=== PATIENT | male | born 1970 | race Caucasian/White ===

== ENCOUNTER 2017-03-08 21:17 | Inpatient (IN) | payer OTHER ==
[~2017-03-08] VITALS: Ht 188 cm; Wt 115.7 kg
[~2017-03-08 21:17] MED LIST: CIPR500T2 PO; OXYC-360 PO
[2017-03-08 21:21] VITALS: BP 134/92; PULSE 104; RESP 16; TEMP 98.2; O2SAT 97
[2017-03-08] MEDS ORDERED: SODIUM CHLORIDE 0.9% FLUSH 10 ML FLUSH IV FLUSH PRN (22:30)
[2017-03-08 22:41] LABS: AUTOMATED NEUTROPHIL # 9.6 TH/MM3 (1.8-7.7); BASOPHIL # 0.1 TH/MM3 (0-0.2); BASOPHIL % 0.5 % (0.0-2.0); EOSINOPHIL # 0.2 TH/MM3 (0-0.4); EOSINOPHIL % 1.8 % (0.0-4.0); HEMATOCRIT 44.4 % (39.0-51.0); HEMO FLAGS DIFF FINAL; LYMPH % 13.5 % (9.0-44.0); LYMPHOCYTE # 1.7 TH/MM3 (1.0-4.8); MEAN CELL VOLUME 94.9 FL (80.0-100.0); MEAN CORPUSCULAR HEMOGLOBIN 31.9 PG (27.0-34.0); MEAN CORPUSCULAR HGB CONC 33.6 % (32.0-36.0); MONO % 8.6 % (0.0-8.0); NEUT % 75.6 % (16.0-70.0); PLATELET COUNT 152 TH/MM3 (150-450); RED BLOOD COUNT 4.68 MIL/MM3 (4.50-5.90); RED CELL DISTRIBUTION WIDTH 12.9 % (11.6-17.2); WHITE BLOOD COUNT 12.7 TH/MM3 (4.0-11.0)
[2017-03-08] MEDS ORDERED: LIDOCAINE VISCOUS 2% SOLN 15 ML UDC PO ONE (23:00)
[2017-03-08] MEDS ORDERED: ALUMINUM/MAGNESIUM/SIMETH 30 ML CUP PO ONE (23:00)
--- NOTE | 2017-03-08 23:06 | PD ---
HPI Chief Complaint: Abdominal Pain Time Seen by Provider: 22:13 Travel History International Travel<30 days: No Contact w/Intl Traveler<30days: No Traveled to known affect area: No History of Present Illness HPI Patient 46-year-old male otherwise healthy presents emergency Department with right other vague epigastric abdominal pain symptoms. Patient states it feels worse when he sits forward because gravity pulling down into the rest of the stomach. He endorses mild nausea without vomiting. Denies any diarrhea. Denies any fevers chest pain shortness of breath. Patient states been gradually worsening over the past 4 days or so. He denies a history of diabetes , he states that his father did have a history of diabetes. [facility] Past Medical History Medical History: Denies Significant Hx Diminished Hearing: No Tetanus Vaccination: > 5 Years Influenza Vaccination: No Past Surgical History Surgical History: No Previous Surgery Social History Alcohol Use: Yes (ON OCCASION) Tobacco Use: No Substance Use: No Allergies-Medications (Allergen,Severity, Reaction): Coded Allergies: No Known Allergies (Verified , 03/08/17) Reported Meds & Prescriptions Reported Meds & Active Scripts Active No Active Prescriptions or Reported Medications Review of Systems Except as stated in HPI: all other systems reviewed are Neg Physical Exam Narrative GENERAL: Well-developed well-nourished no apparent distress SKIN: Focused skin assessment warm/dry. HEAD: Atraumatic. Normocephalic. EYES: Pupils equal and round. No scleral icterus. No injection or drainage. ENT: No nasal bleeding or discharge. Mucous membranes pink and moist. NECK: Trachea midline. No JVD. CARDIOVASCULAR: Regular rate and rhythm. No murmur appreciated. RESPIRATORY: No accessory muscle use. Clear to auscultation. Breath sounds equal bilaterally. GASTROINTESTINAL: Abdomen soft, non-tender, nondistended. Hepatic and splenic margins not palpable. No rebound no percussive tenderness. MUSCULOSKELETAL: No obvious deformities. No clubbing. No cyanosis. No edema. NEUROLOGICAL: Awake and alert. No obvious cranial nerve deficits. Motor grossly within normal limits. Normal speech. PSYCHIATRIC: Appropriate mood and affect; insight and judgment normal. Data Data Last Documented VS Vital Signs Date Time Temp Pulse Resp B/P Pulse Ox O2 Delivery O2 Flow Rate FiO2 03/08/17 23:46 100 14 137/84 95 Room Air 03/08/17 21:21 98.2 Orders Complete Blood Count With Diff (03/08/17 22:21) Comprehensive Metabolic Panel (03/08/17 22:21) Lipase (03/08/17 22:21) Iv Access Insert/Monitor (03/08/17 22:21) Ecg Monitoring (03/08/17 22:21) Oximetry (03/08/17 22:21) Sodium Chloride 0.9% Flush (Ns Flush) (03/08/17 22:30) Electrocardiogram (03/08/17 22:21) Troponin I (03/08/17 22:21) Al-Mag Hy-Si 40-40-4 Mg/Ml Liq (Mag-Al P (03/08/17 23:00) Lidocaine 2% Viscous (Xylocaine 2% Visco (03/08/17 23:00) Sodium Chlor 0.9% 1000 Ml Inj (Ns 1000 M (03/08/17 23:30) Insulin Human Regular Inj (Novolin R Inj (03/08/17 23:30) Beta Hydroxybutyrate (Acetone) (03/08/17 23:33) Resp Blood Gas Venous (03/08/17 ) Vba Developer / Telemetry JOSE.Q8H (03/08/17 23:33) ^ Insert Iv (03/08/17 23:33) Diet Npo (03/09/17 Breakfast) Sodium Chlor 0.9% 1000 Ml Inj (Ns 1000 M (03/08/17 23:33) Dext 5%-Nacl 0.9% 1000 Ml Inj (D5w-Ns 10 (03/08/17 23:33) Insulin Regular (Iv Infusion) (Novolin R (03/08/17 23:45) Potassium Chlor 40 Meq Premix (Kcl 40 Me (03/08/17 23:45) Potassium Chlor 40 Meq Premix (Kcl 40 Me (03/08/17 23:45) Potassium Chlor 20 Meq Premix (Kcl 20 Me (03/08/17 23:45) Potassium Chlor 20 Meq Premix (Kcl 20 Me (03/08/17 23:45) Potassium Chlor 20 Meq Premix (Kcl 20 Me (03/08/17 23:45) Potassium Chlor 20 Meq Premix (Kcl 20 Me (03/08/17 23:45) Potassium Chlor 20 Meq Premix (Kcl 20 Me (03/08/17 23:45) Potassium Chlor 20 Meq Premix (Kcl 20 Me (03/08/17 23:45) Sodium Bicarbonate 8.4% Inj (Sodium Bica (03/08/17 23:45) Sodium Bicarbonate 8.4% Inj (Sodium Bica (03/08/17 23:45) Sodium Phosphate Inj (Sodium Phosphate I (03/08/17 23:45) Hemoglobin (Hgb) A1c (03/08/17 23:33) Urinalysis - C+S If Indicated (03/08/17 23:33) Basic Metabolic Panel (Bmp) (03/09/17 04:33) Basic Metabolic Panel (Bmp) (03/09/17 10:33) Basic Metabolic Panel (Bmp) (03/09/17 16:33) Basic Metabolic Panel (Bmp) (03/09/17 22:33) Magnesium (Mg) (03/09/17 04:33) Magnesium (Mg) (03/09/17 10:33) Magnesium (Mg) (03/09/17 16:33) Magnesium (Mg) (03/09/17 22:33) Phosphorus (Po4) (03/09/17 04:33) Phosphorus (Po4) (03/09/17 10:33) Phosphorus (Po4) (03/09/17 16:33) Phosphorus (Po4) (03/09/17 22:33) Beta Hydroxybutyrate (Acetone) (03/09/17 10:33) Beta Hydroxybutyrate (Acetone) (03/09/17 22:33) Sodium Chlor 0.9% 1000 Ml Inj (Ns 1000 M (03/09/17 00:00) Admit To Inpatient (03/08/17 ) Vital Signs (Adult) Q4H (03/08/17 23:47) Activity Oob Ad Catherine (03/08/17 23:47) Vba Developer / Telemetry .CONTINUOUS (03/08/17 23:47) Sodium Chloride 0.9% Flush (Ns Flush) (03/09/17 00:00) Sodium Chloride 0.9% Flush (Ns Flush) (03/09/17 09:00) Case Management Consult (03/08/17 23:47) Naloxone Inj (Narcan Inj) (03/09/17 00:00) Inpatient Certification (03/08/17 ) Admit Order (Ed Use Only) (03/08/17 ) Labs Laboratory Tests Test 03/08/17 03/08/17 22:30 23:36 White Blood Count 12.7 TH/MM3 Red Blood Count 4.68 MIL/MM3 Hemoglobin 14.9 GM/DL Hematocrit 44.4 % Mean Corpuscular Volume 94.9 FL Mean Corpuscular Hemoglobin 31.9 PG Mean Corpuscular Hemoglobin 33.6 % Concent Red Cell Distribution Width 12.9 % Platelet Count 152 TH/MM3 Mean Platelet Volume 10.2 FL Neutrophils (%) (Auto) 75.6 % Lymphocytes (%) (Auto) 13.5 % Monocytes (%) (Auto) 8.6 % Eosinophils (%) (Auto) 1.8 % Basophils (%) (Auto) 0.5 % Neutrophils # (Auto) 9.6 TH/MM3 Lymphocytes # (Auto) 1.7 TH/MM3 Monocytes # (Auto) 1.1 TH/MM3 Eosinophils # (Auto) 0.2 TH/MM3 Basophils # (Auto) 0.1 TH/MM3 CBC Comment DIFF FINAL Differential Comment Sodium Level 124 MEQ/L Potassium Level 4.7 MEQ/L Chloride Level 92 MEQ/L Carbon Dioxide Level 15.6 MEQ/L Anion Gap 16 MEQ/L Blood Urea Nitrogen 8 MG/DL Creatinine 1.27 MG/DL Estimat Glomerular Filtration 61 ML/MIN Rate Random Glucose 455 MG/DL Calcium Level 8.8 MG/DL Total Bilirubin 1.5 MG/DL Aspartate Amino Transf 28 U/L (AST/SGOT) Alanine Aminotransferase 34 U/L (ALT/SGPT) Alkaline Phosphatase 96 U/L Troponin I LESS THAN 0.02 NG/ML Total Protein 8.3 GM/DL Albumin 3.3 GM/DL Lipase 89986 U/L B-Hydroxybutyrate 5.44 MMOL/L Blood Gas Puncture Site PIV Blood Gas Patient Temperature 98.6 Venous Blood pH 7.35 Venous Blood Partial Pressure 24 mmHg CO2 Venous Blood Partial Pressure 47 mmHg O2 Venous Blood HCO3 13 mmol/L Venous Blood Oxygen Saturation 80 % Venous Blood Oxygen Content 17.3 Vol % Venous Blood Base Excess -11.4 mmol/L Oxygen Delivery Device RA Blood Gas Inspired Oxygen 21 % MDM Medical Decision Making Medical Screen Exam Complete: Yes Emergency Medical Condition: Yes Interpretation(s) EKG shows no sinus rhythm normal axis and normal R-wave progression. No concerning ST T changes. Minimal motion artifact in V2. Intervals within normal limits. This normal EKG. Differential Diagnosis Abdominal pain, electrolyte abnormality, metabolic disturbance, DKA, acute abdomen highly unlikely Narrative Course 46-year-old male quite well-appearing with a benign physical exam presents emergency Department with epigastric abdominal pain. Basic labs were sent and remarkably the patient has new onset diabetes with DKA and a blood glucose in excess of 450. DKA is fairly mild. PH is 7.3. His anion gap is 16 with a bicarbonate of 15. Discuss results with the patient and my recommendations for fluid resuscitation and admission and he is agreeable. The DKA protocol has been initiated. His pain is well under control and he declined anything for pain at this time. An EKG was obtained and negative, troponin negative. Does have a sodium of 124 which collects to 133 when corrected for glucose. Lipase is elevated to 10,000 was likely runs with his DKA. Beta hydroxybutyrate is positive. She was discussed with Dr. Durbin for admission to the ICU and she is agreeable. Critical Care Narrative Aggregate critical care time was 31 minutes. Time to perform other separately billable procedures was not included in the critical care time. My time did not include minutes spent treating any other patients simultaneously or on activities that did not directly contribute to the patient's treatment. The services I provided to this patient were to treat and/or prevent clinically significant deterioration that could result in: , Disability, organ failure I provided critical care services requiring my management, as noted below: Chart data review, documentation time, medication orders and management, vital sign assessments/reviewing monitor data, ordering and reviewing lab tests, ordering and interpreting/reviewing x-rays and diagnostic studies, care of the patient and discussion of the patient with the admitting physicians. Diagnosis Primary Impression: DKA (diabetic ketoacidoses) Qualified Code: E13.10 - Diabetic ketoacidosis without coma associated with other specified diabetes mellitus Additional Impression: Diabetes mellitus, new onset Admitting Information Admitting Physician Requests: Admit Scripts No Active Prescriptions or Reported Meds Condition: Stable Edmond Lindsay MD Mar 08, 2017 23:06
[2017-03-08 23:17] LABS: ALKALINE PHOSPHATASE 96 U/L (45-117); ALT (GPT) 34 U/L (12-78); ANION GAP 16 MEQ/L (5-15); AST (GOT) 28 U/L (15-37); BICARBONATE 15.6 MEQ/L (21.0-32.0); BLOOD UREA NITROGEN 8 MG/DL (7-18); CHLORIDE 92 MEQ/L (98-107); GLOMERULAR FILTRATION RATE 61 ML/MIN (>89); TOTAL BILIRUBIN ADULT 1.5 MG/DL (0.2-1.0)
[2017-03-08 23:18] LABS: POTASSIUM 4.7 MEQ/L (3.5-5.1)
[2017-03-08 23:29] LABS: SODIUM (NA) 124 MEQ/L (136-145)
[2017-03-08] MEDS ORDERED: INSULIN HUMAN REGULAR 1,000 UNITS/10 ML VIAL IV PUSH ONE (23:30)
[2017-03-08] MEDS ORDERED: SODIUM CHLOR 0.9% 1000 ML INJ 1,000 ML IV ONE (23:30)
[2017-03-08] MEDS ORDERED: DEXT 5%-NACL 0.9% 1000 ML INJ 1,000 ML IV SCH (23:33)
[2017-03-08] MEDS ORDERED: SODIUM CHLOR 0.9% 1000 ML INJ 1,000 ML IV SCH (23:33)
[2017-03-08] MEDS ORDERED: SODIUM PHOSPHATE INJ 15 MMOL in SODIUM CHLORIDE 0.9% INJ 100 ML IV PRN (23:45)
[2017-03-08] MEDS ORDERED: INSULIN REGULAR (IV INFUSION) 100 UNITS in SODIUM CHLORIDE 0.9% INJ 99 ML IV SCH (23:45)
[2017-03-08] MEDS ORDERED: POTASSIUM CHLOR 40 MEQ PREMIX 100 ML IV PRN ×2 (23:45)
[2017-03-08] MEDS ORDERED: SODIUM BICARBONATE 8.4% SOLN 50 MEQ/50 ML VIAL IV PRN ×2 (23:45)
[2017-03-08] MEDS ORDERED: POTASSIUM CHLOR 20 MEQ PREMIX 100 ML IV PRN ×5 (23:45)
[2017-03-08 23:46] VITALS: BP 137/84; PULSE 100; RESP 14; O2SAT 95
[2017-03-08 23:58] LABS: BLOOD GAS VENOUS BASE EXCESS -11.4 mmol/L (-2-2); BLOOD GAS VENOUS HCO3 13 mmol/L (22-26); BLOOD GAS VENOUS O2 CONTENT 17.3 Vol % (9.0-17.0); BLOOD GAS VENOUS O2 HGB SAT 80 % (70-76); BLOOD GAS VENOUS PCO2 24 mmHg (44-48); BLOOD GAS VENOUS PO2 47 mmHg (35-40); BLOOD GAS VENOUS pH 7.35 (7.360-7.400); TEMP CORR TO 98.6
[2017-03-08 23:59] LABS: CRITICAL VALUE YES; FIO2 21 %; OXYGEN DEVICE RA
[2017-03-09] VITALS (16 sets, daily range): BP systolic 115–140; BP diastolic 69–85; PULSE 78–98; RESP 16–20; TEMP 98–99.1; O2SAT 94–96
[2017-03-09] LABS: DRAW SITE PIV; STAT YES
[2017-03-09] MEDS ORDERED: NALOXONE HCL 0.4 MG/ML AMP IV PRN
[2017-03-09] MEDS ORDERED: SODIUM CHLORIDE 0.9% FLUSH 10 ML FLUSH IV FLUSH PRN
[2017-03-09] MEDS ORDERED: SODIUM CHLOR 0.9% 1000 ML INJ 1,000 ML IV ONE
[2017-03-09] MEDS: POTASSIUM CHLOR 20 MEQ PREMIX 100 ML IV PRN ×2 (00:43→06:22)
[2017-03-09 00:57] LABS: BLOOD, URINE TRACE (NEG); GLUCOSE,URINE 1000 mg/dL (NEG); KETONE, URINE 150 mg/dL (NEG); NITRITE,URINE NEG (NEG); URINE COLOR LIGHT-YELLOW (YELLW/STRAW)
[2017-03-09 01:13] LABS: COMMENT (UR) CULT NOT INDICATED; CULTURE IF INDICATED CULT NOT INDICATED
--- NOTE | 2017-03-09 02:19 | HHI.HP ---
[facility] Service [facility] Primary Care Physician No Primary Care Physician Admission Diagnosis DKA, new onset diabetes Diagnoses: Chief Complaint: abdominal pain Travel History International Travel<30 Days: No Contact w/Intl Traveler <30 Da: No Traveled to Known Affected Are: No History of Present Illness History from patient and ER physician communication. patient reported that he came to the hospital because he was having stomach ache starting Tuesday. He pointed to the mid epigastrium. He denies any nausea. Denies vomiting. Denies diarrhea. Denies any fever. He reports that he did have some loss of appetite. He was however pushing lots of fluids at home with Gatorade Denies any urinary burning or pain on urination or frequent urination. Denies diarrhea. denies seeing blood in his stool or urine. Denies any chest pain/shortness of breath/syncopal episodes. Patient reports that he commutes to [place] for his job on daily basis with that one hour car ride back and forth. However he denies any calf asymmetry or pains in his calf muscles. Upon further questioning, patient reports he does drink a lot of water about 3- 4 L a day. Also reports of urinating quite a bit. In the emergency room, patient's further workup revealed elevated blood sugars with an anion gap metabolic acidosis. He was also noted to have elevated lipase levels. Denies taking any medications at home at all apart from mild vitamins. Denies drinking any alcohol at all. He states he only probably drinks about once a year. Reports a family history of diabetes in his father. Review of Systems Except as stated in HPI: all other systems reviewed are Neg Past Family Social History Past Medical History none Past Surgical History none Reported Medications mvi none Allergies: Coded Allergies: No Known Allergies (Verified , 03/08/17) Family History dad- dm- diagnosed in his 70s Social History no smoking/ socially only once a year/ no drugs Physical Exam Vital Signs Vital Signs Date Time Temp Pulse Resp B/P Pulse Ox O2 Delivery O2 Flow Rate FiO2 03/09/17 01:31 99.1 93 20 134/85 95 03/08/17 23:46 100 14 137/84 95 Room Air 03/08/17 21:21 98.2 104 16 134/92 97 Physical Exam GENERAL: This is a well-nourished, well-developed patient, in no apparent distress. SKIN: No rashes, ecchymoses or lesions. Cool and dry. HEAD: Atraumatic. Normocephalic. No temporal or scalp tenderness. EYES: No scleral icterus. No injection or drainage. ENT: Nose without bleeding, purulent drainage or septal hematoma. Airway patent. NECK: Trachea midline. No JVD CARDIOVASCULAR: Regular rate and rhythm without murmurs, gallops, or rubs. RESPIRATORY: Clear to auscultation. Breath sounds equal bilaterally. No wheezes , rales, or rhonchi. GASTROINTESTINAL: Abdomen soft, non-tender, nondistended. No guarding. MUSCULOSKELETAL: Extremities without clubbing, cyanosis, or edema. No calf tenderness. NEUROLOGICAL: Awake and alert. Motor and sensory grossly within normal limits. Normal speech. Laboratory Laboratory Tests Test 03/08/17 03/08/17 03/09/17 22:30 23:36 00:40 White Blood Count 12.7 Red Blood Count 4.68 Hemoglobin 14.9 Hematocrit 44.4 Mean Corpuscular Volume 94.9 Mean Corpuscular Hemoglobin 31.9 Mean Corpuscular Hemoglobin 33.6 Concent Red Cell Distribution Width 12.9 Platelet Count 152 Mean Platelet Volume 10.2 Neutrophils (%) (Auto) 75.6 Lymphocytes (%) (Auto) 13.5 Monocytes (%) (Auto) 8.6 Eosinophils (%) (Auto) 1.8 Basophils (%) (Auto) 0.5 Neutrophils # (Auto) 9.6 Lymphocytes # (Auto) 1.7 Monocytes # (Auto) 1.1 Eosinophils # (Auto) 0.2 Basophils # (Auto) 0.1 CBC Comment DIFF FINAL Differential Comment Sodium Level 124 Potassium Level 4.7 Chloride Level 92 Carbon Dioxide Level 15.6 Anion Gap 16 Blood Urea Nitrogen 8 Creatinine 1.27 Estimat Glomerular Filtration 61 Rate Random Glucose 455 Calcium Level 8.8 Total Bilirubin 1.5 Aspartate Amino Transf 28 (AST/SGOT) Alanine Aminotransferase 34 (ALT/SGPT) Alkaline Phosphatase 96 Troponin I LESS THAN 0.02 Total Protein 8.3 Albumin 3.3 Lipase 71350 B-Hydroxybutyrate 5.44 Blood Gas Puncture Site PIV Blood Gas Patient Temperature 98.6 Venous Blood pH 7.35 Venous Blood Partial Pressure 24 CO2 Venous Blood Partial Pressure 47 O2 Venous Blood HCO3 13 Venous Blood Oxygen Saturation 80 Venous Blood Oxygen Content 17.3 Venous Blood Base Excess -11.4 Oxygen Delivery Device RA Blood Gas Inspired Oxygen 21 Urine Color LIGHT-YELLOW Urine Turbidity CLEAR Urine pH 5.0 Urine Specific [place] 1.032 Urine Protein TRACE Urine Glucose (UA) 1000 Urine Ketones 150 Urine Occult Blood TRACE Urine Nitrite NEG Urine Bilirubin NEG Urine Urobilinogen LESS THAN 2.0 Urine Leukocyte Esterase NEG Urine RBC LESS THAN 1 Urine WBC LESS THAN 1 Microscopic Urinalysis Comment CULT NOT INDICATED Result Diagram: 03/08/17222903/08/172229 Assessment and Plan Problem List: (1) DKA (diabetic ketoacidoses) ICD Code: E13.10 Status: Acute (2) Pancreatitis ICD Code: K85.90 Status: Acute Assessment and Plan Impression: DKA Anion gap Metabolic acidosis Pseudohyponatremia Acute pancreatitis Plan: Patient was given normal saline bolus 2 L IV fluids. He was started on insulin drip per DKA protocol. Every hour fingersticks. Electrolytes close monitoring with correction. Will overlap with long-acting insulin once anion gap is closed. Nothing by mouth for now. Once the anion gap is closed and patient is able to tolerate diet, would start on diet. Patient has no evidence of nausea/vomiting at present. 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 DVT prophylaxiswith Lovenox. Discussed Condition With Patient, ER physician, patient's nurse Physician Certification 2 Midnight Certification Type: Admission for Inpatient Services Order for Inpatient Services The services are ordered in accordance with Medicare regulations or non- Medicare payer requirements, as applicable. In the case of services not specified as inpatient-only, they are appropriately provided as inpatient services in accordance with the 2-midnight benchmark. Estimated LOS (days): 2 days is the estimated time the patient will need to remain in the hospital, assuming treatment plan goals are met and no additional complications. Post-Hospital Plan: Home Problem Qualifiers (1) DKA (diabetic ketoacidoses): Qualified Code: E13.10 - Diabetic ketoacidosis without coma associated with other specified diabetes mellitus Sissy León MD Mar 09, 2017 02:19
[2017-03-09] MEDS ORDERED: MISCELLANEOUS NURSING INFORMATION XX SCH (02:30)
[2017-03-09] MEDS ORDERED: CHLORHEXIDINE GLUCONATE 2 % 1 PACK (2 CLOTHS) TOP PRN (02:30)
[2017-03-09] MEDS ORDERED: MORPHINE SULFATE 4 MG/ML INJ IV PUSH PRN (02:30)
[2017-03-09] MEDS: CHLORHEXIDINE GLUCONATE 2 % 1 PACK (2 CLOTHS) TOP SCH (04:00)
[2017-03-09 05:19] LABS: AUTOMATED NEUTROPHIL # 7.9 TH/MM3 (1.8-7.7); BASOPHIL % 0.4 % (0.0-2.0); EOSINOPHIL # 0.2 TH/MM3 (0-0.4); EOSINOPHIL % 1.9 % (0.0-4.0); HEMATOCRIT 40.9 % (39.0-51.0); HEMO FLAGS DIFF FINAL; LYMPH % 18.5 % (9.0-44.0); LYMPHOCYTE # 2.1 TH/MM3 (1.0-4.8); MEAN CELL VOLUME 93.2 FL (80.0-100.0); MEAN CORPUSCULAR HEMOGLOBIN 31.7 PG (27.0-34.0); MONO % 8.7 % (0.0-8.0); NEUT % 70.5 % (16.0-70.0); PLATELET COUNT 140 TH/MM3 (150-450); RED BLOOD COUNT 4.39 MIL/MM3 (4.50-5.90); WHITE BLOOD COUNT 11.1 TH/MM3 (4.0-11.0)
[2017-03-09 05:21] LABS: BICARBONATE 17.7 MEQ/L (21.0-32.0); INDIRECT BILIRUBIN 1.1 MG/DL (0.0-0.8); MAGNESIUM 2.2 MG/DL (1.5-2.5); POTASSIUM 3.7 MEQ/L (3.5-5.1); TOTAL BILIRUBIN ADULT 1.2 MG/DL (0.2-1.0)
[2017-03-09] MEDS ORDERED: INSULIN DETEMIR 100 UNITS/ML VIAL SQ ONE (05:30)
[2017-03-09] MEDS: SODIUM CHLORIDE 0.9% FLUSH 10 ML FLUSH IV FLUSH SCH ×2 (09:00→20:18)
[2017-03-09] MEDS: INSULIN DETEMIR 100 UNITS/ML VIAL SQ SCH (09:19)
[2017-03-09] MEDS: ENOXAPARIN SODIUM 40 MG/0.4 ML SYRINGE SQ SCH (09:20)
[2017-03-09] MEDS ORDERED: DEXTROSE 50% IN WATER 50 ML VIAL(D50) IV PUSH PRN (10:45)
[2017-03-09] MEDS ORDERED: GLUCAGON 1 MG/ML VIAL OTHER PRN (10:45)
[2017-03-09] MEDS: INSULIN ASPART SUPPLEMENTAL SCALE SQ SCH ×3 (12:24→20:19)
[2017-03-09] MEDS: POTASSIUM PHOSPHATE/SODIUM PHOSPHATE 250 MG TAB PO SCH ×3 (12:24→23:40)
[2017-03-09 15:48] LABS: HEMOGLOBIN A1a 1.3 %; HEMOGLOBIN A1b 1.2 %; HEMOGLOBIN Ao 71.5 %; HEMOGLOBIN LA1C 4.2 %; HEMOGLOBIN P3 5.4 %
[2017-03-09 16:09] LABS: HEMOGLOBIN A1a 1.3 %; HEMOGLOBIN A1b 1.1 %; HEMOGLOBIN Ao 73.2 %; HEMOGLOBIN F 1.9 %; HEMOGLOBIN LA1C 3.1 %; HEMOGLOBIN P3 5.1 %
--- NOTE | 2017-03-09 16:52 | HHI.PR ---
Subjective Remarks Follow-up DKA. He is feeling better. Diabetic education provided. Discussed with RN Objective Vitals Vital Signs Date Time Temp Pulse Resp B/P Pulse Ox O2 Delivery O2 Flow Rate FiO2 03/09/17 14:00 80 03/09/17 12:00 80 03/09/17 11:00 98.6 86 18 123/78 95 03/09/17 10:00 80 03/09/17 08:00 78 03/09/17 07:00 98.2 93 16 117/70 96 03/09/17 06:00 88 03/09/17 04:00 98.0 89 18 128/72 96 03/09/17 04:00 89 03/09/17 02:00 98 03/09/17 02:00 98 03/09/17 01:31 99.1 93 20 134/85 95 03/08/17 23:46 100 14 137/84 95 Room Air 03/08/17 21:21 98.2 104 16 134/92 97 I/O 03/08/17 03/08/17 03/08/17 03/09/17 03/09/17 03/09/17 07:00 15:00 23:00 07:00 15:00 23:00 Intake Total 1015 ml 2226 ml Output Total 600 ml 1200 ml Balance 415 ml 1026 ml Intake Oral 720 ml IV Total 1015 ml 1506 ml Output Urine Total 600 ml 1200 ml # Voids 4 Result Diagram: 03/09/17 0413 03/09/17 0413 Objective Remarks GENERAL: This is a well-nourished, well-developed patient, in no apparent distress. SKIN: No rashes, ecchymoses or lesions. Cool and dry. HEAD: Atraumatic. Normocephalic. No temporal or scalp tenderness. EYES: No scleral icterus. No injection or drainage. ENT: Nose without bleeding, purulent drainage or septal hematoma. Airway patent. NECK: Trachea midline. No JVD CARDIOVASCULAR: Regular rate and rhythm without murmurs, gallops, or rubs. RESPIRATORY: Clear to auscultation. Breath sounds equal bilaterally. No wheezes , rales, or rhonchi. GASTROINTESTINAL: Abdomen soft, non-tender, nondistended. No guarding. MUSCULOSKELETAL: Extremities without clubbing, cyanosis, or edema. No calf tenderness. NEUROLOGICAL: Awake and alert. Motor and sensory grossly within normal limits. Normal speech. Procedures none A/P Problem List: (1) DKA (diabetic ketoacidoses) ICD Code: E13.10 Status: Acute (2) Pancreatitis ICD Code: K85.90 Status: Acute Assessment and Plan DKA. Clinically improved. Diabetic education. Continue Levemir with sliding scale coverage. Pseudohyponatremia. Improving Acute pancreatitis. Clinically improving with no abdominal pain. Will monitor level DVT prophylaxiswith Lovenox. Problem Qualifiers (1) DKA (diabetic ketoacidoses): Qualified Code: E13.10 - Diabetic ketoacidosis without coma associated with other specified diabetes mellitus Andrey Castaneda MD Mar 09, 2017 16:52
--- NOTE | 2017-03-09 20:19 | EKG ---
Date Performed: 03/08/2017 Time Performed: 23:03:53 PTAGE: 46 years EKG: Sinus rhythm NORMAL ECG NO PREVIOUS TRACING DOCTOR: Glory Richter Interpretating Date/Time 03/09/2017 20:18:12
[2017-03-10 00:38] VITALS: BP 129/73; PULSE 95; RESP 18; TEMP 99.1; O2SAT 95
[2017-03-10 00:48] VITALS: BP 126/69; PULSE 79; RESP 19; TEMP 97.3; O2SAT 98
[2017-03-10] MEDS: CHLORHEXIDINE GLUCONATE 2 % 1 PACK (2 CLOTHS) TOP SCH (03:37)
[2017-03-10] MEDS: POTASSIUM PHOSPHATE/SODIUM PHOSPHATE 250 MG TAB PO SCH (05:38)
[2017-03-10] MEDS: INSULIN ASPART SUPPLEMENTAL SCALE SQ SCH ×3 (05:47→16:10)
[2017-03-10 05:58] LABS: AUTOMATED NEUTROPHIL # 5.9 TH/MM3 (1.8-7.7); BASOPHIL # 0.1 TH/MM3 (0-0.2); BASOPHIL % 0.7 % (0.0-2.0); EOSINOPHIL # 0.4 TH/MM3 (0-0.4); EOSINOPHIL % 4.1 % (0.0-4.0); HEMATOCRIT 37.3 % (39.0-51.0); HEMO FLAGS DIFF FINAL; LYMPH % 21.9 % (9.0-44.0); MEAN CELL VOLUME 93.5 FL (80.0-100.0); MEAN CORPUSCULAR HEMOGLOBIN 31.5 PG (27.0-34.0); MEAN CORPUSCULAR HGB CONC 33.7 % (32.0-36.0); MONO % 8.3 % (0.0-8.0); PLATELET COUNT 138 TH/MM3 (150-450); RED BLOOD COUNT 3.99 MIL/MM3 (4.50-5.90); RED CELL DISTRIBUTION WIDTH 13.2 % (11.6-17.2)
[2017-03-10 06:31] LABS: BICARBONATE 20.6 MEQ/L (21.0-32.0); MAGNESIUM 2.1 MG/DL (1.5-2.5); POTASSIUM 3.5 MEQ/L (3.5-5.1)
[2017-03-10 08:00] VITALS: BP 116/72; PULSE 86; RESP 16; TEMP 97.2; O2SAT 96
[2017-03-10] MEDS: INSULIN DETEMIR 100 UNITS/ML VIAL SQ SCH (08:50)
[2017-03-10] MEDS: SODIUM CHLORIDE 0.9% FLUSH 10 ML FLUSH IV FLUSH SCH (08:51)
[2017-03-10] MEDS: ENOXAPARIN SODIUM 40 MG/0.4 ML SYRINGE SQ SCH (08:51)
[2017-03-10] MEDS ORDERED: LEVEMIR SQ ×2 (08:57)
[2017-03-10] MEDS ORDERED: NOVOLOGSS SQ (08:57)
--- NOTE | 2017-03-10 08:58 | HHI.DCPOC ---
Discharge Care Plan Diagnosis: (1) DKA (diabetic ketoacidoses) (2) Pancreatitis (3) Diabetes mellitus, new onset Your Health Problems Are: Difficulty with ADL Exercise Tolerance Fluctuating Blood Sugars Goals to Promote Your Health * To prevent worsening of your condition and complications * To maintain your health at the optimal level Directions to Meet Your Goals Take your medications as prescribed Follow your dietary instruction Follow activity as directed Keep your appointments as scheduled Take your immunizations and boosters as scheduled If your symptoms worsen call your PCP, if no PCP go to Urgent Care Center or Emergency Room Smoking is Dangerous to Your Health. Avoid second hand smoke Call the 24-hour hour crisis hotline for domestic abuse at Andrey Castaneda MD Mar 10, 2017 08:58
[2017-03-10] MEDS ORDERED: INSU1MIS15 (09:00)
[2017-03-10] MEDS ORDERED: GLUCKIT15 (09:00)
[2017-03-10] MEDS ORDERED: INSULIN DETEMIR 100 UNITS/ML VIAL SQ SCH ×2 (09:00→21:00)
[2017-03-10] MEDS ORDERED: GLUCTES12 (09:00)
[2017-03-10] MEDS ORDERED: LANCETS1 MI1 (09:00)
[2017-03-10 12:00] VITALS: BP 148/81; PULSE 120; RESP 16; TEMP 97; O2SAT 98
--- NOTE | 2017-03-10 14:00 | HHI.PR ---
Subjective Remarks Follow-up diabetes mellitus. Patient asymptomatic without polydipsia, polyuria , polyphagia. Tolerating diet and wants to go home. Diabetic education provided again with the patient and discussed with RN Objective Vitals Vital Signs Date Time Temp Pulse Resp B/P Pulse Ox O2 Delivery O2 Flow Rate FiO2 03/10/17 08:00 97.2 86 16 116/72 96 03/10/17 00:48 97.3 79 19 126/69 98 03/09/17 21:30 98.4 97 19 140/77 96 03/09/17 20:00 96 03/09/17 19:00 98.7 96 16 121/69 94 03/09/17 18:00 80 03/09/17 16:00 80 03/09/17 15:00 98.4 87 20 115/72 95 03/09/17 14:00 80 I/O 03/09/17 03/09/17 03/09/17 03/10/17 03/10/17 03/10/17 07:00 15:00 23:00 07:00 15:00 23:00 Intake Total 1015 ml 2226 ml 360 ml 720 ml Output Total 600 ml 1200 ml 550 ml Balance 415 ml 1026 ml -190 ml 720 ml Intake Oral 720 ml 360 ml 720 ml IV Total 1015 ml 1506 ml Output Urine Total 600 ml 1200 ml 550 ml # Voids 4 2 1 # Bowel Movements 0 0 Result Diagram: 03/10/1715 03/10/17514 Objective Remarks GENERAL: This is a well-nourished, well-developed patient, in no apparent distress. SKIN: No rashes, ecchymoses or lesions. Cool and dry. HEAD: Atraumatic. Normocephalic. No temporal or scalp tenderness. EYES: No scleral icterus. No injection or drainage. ENT: Nose without bleeding, purulent drainage or septal hematoma. Airway patent. NECK: Trachea midline. No JVD CARDIOVASCULAR: Regular rate and rhythm without murmurs, gallops, or rubs. RESPIRATORY: Clear to auscultation. Breath sounds equal bilaterally. No wheezes , rales, or rhonchi. GASTROINTESTINAL: Abdomen soft, non-tender, nondistended. No guarding. MUSCULOSKELETAL: Extremities without clubbing, cyanosis, or edema. No calf tenderness. NEUROLOGICAL: Awake and alert. Motor and sensory grossly within normal limits. Normal speech. Nonfocal Procedures none A/P Problem List: (1) DKA (diabetic ketoacidoses) ICD Code: E13.10 Status: Acute (2) Pancreatitis ICD Code: K85.90 Status: Acute Assessment and Plan DKA. Resolved. New onset diabetes mellitus A1c 14. Diabetic education. Continue Levemir with sliding scale coverage. Pseudohyponatremia. Improving Acute pancreatitis. Clinically improving with no abdominal pain. Will monitor level DVT prophylaxiswith Lovenox. Stable for discharge Discharge Planning Discharge patient to home. He has significantly improved earlier than anticipated Condition on discharge: Improved Diabetic diet Ad Catherine activity no driving Rx written: Levemir and NovoLog Follow-up with primary care physician in one week Spent over 30 minutes arranging discharge discussed with RN and case management. Prescriptions completed Problem Qualifiers (1) DKA (diabetic ketoacidoses): Qualified Code: E13.10 - Diabetic ketoacidosis without coma associated with other specified diabetes mellitus Andrey Castaneda MD Mar 10, 2017 14:00
== END 2017-03-10 17:46 | disposition home or self-care (01) | DRG 637 ==
LOC: NEPD 21:17 → NEDA 23:52 → HIMN 03-09 01:20 → N06B 03-09 21:03
PROVIDERS: ADMIT Internal Medicine; ATTEND Internal Medicine
DX: E13.10 Other specified diabetes mellitus with ketoacidosis without coma (principal); K85.90 Acute pancreatitis without necrosis or infection, unspecified
CPT/HCPCS: 80048; 80053; 80076; 81001; 82010; 82805; 82948; 83036; 83690; 83735; 84100; 84484; 85025; 87641; 93005; 96374; J1650; J1815; J1817; J3480; J7030

== ENCOUNTER 2017-03-12 18:14 | Emergency (ER) | payer OTHER ==
[~2017-03-12] VITALS: Ht 188 cm; Wt 109.0 kg
[~2017-03-12 18:14] MED LIST changes: -CIPR500T2 PO; +GLUCKIT15; +GLUCTES12; +INSU1MIS15; +LANCETS1 MI1; +LEVEMIR SQ; +NOVOLOGSS SQ; -OXYC-360 PO
[2017-03-12 18:16] VITALS: BP 143/91; PULSE 101; RESP 15; TEMP 98.7; O2SAT 95
--- NOTE | 2017-03-12 18:33 | PD ---
HPI . left leg swelling Chief Complaint: Edema Time Seen by Provider: 18:33 Travel History International Travel<30 days: No Contact w/Intl Traveler<30days: No Traveled to known affect area: No History of Present Illness HPI 46 yr old male with newly dx diabetes here with c/o left thigh swelling. He says it started yesterday evening after he did some stretching. He reports some tightness in the area and pain with walking due to the tightness. He denies any recent injury. He has no other complaints. [facility] Past Medical History Medical History: Denies Significant Hx Cardiovascular Problems: No Diminished Hearing: No Genitourinary: No Musculoskeletal: No Neurologic: No Reproductive: No Respiratory: No Immunizations Current: Yes Tetanus Vaccination: > 5 Years Influenza Vaccination: No Past Surgical History Surgical History: No Previous Surgery Social History Alcohol Use: No (rare) Tobacco Use: No Substance Use: No Allergies-Medications (Allergen,Severity, Reaction): Coded Allergies: No Known Allergies (Verified , 03/08/17) Reported Meds & Prescriptions Reported Meds & Active Scripts Active Ibuprofen 800 Mg Tab 800 Mg PO TID Flexeril (Cyclobenzaprine HCl) 5 Mg Tab 5 Mg PO TID Glucocom Test Strips (Blood Glucose Test Strips) 1 Genia Genia 1 Ea .ROUTE DIRECTED Lancets 1 Mis Mis 1 Ea .ROUTE DIRECTED Insulin Syringe/U-100/31G X 5/16" 1 ml 1 Mis Mis 1 Ea .ROUTE DIRECTED Glucocom Blood Glucose Mo W/Device (Device) 1 Kit Kit 1 Kit .ROUTE DIRECTED Novolog Inj (Insulin Aspart) 100 Unit/Ml Inj 1 Units SQ ACHS SLIDING SCALE Do not cover Fasting Sugar less than 200 while NPO; Max dose at bedtime: 2 units; Max dose at 3am: 0 units; blood sugars less than 70: 0 units; blood sugars 150-199: 1 unit; blood sugars 200-249: 3 units; blood sugars 250-299: 5 units; blood sugars 300-349: 7 units; blood sugars greater than 349: 9 units. Levemir Inj (Insulin Detemir) 1,000 unit/ 10 ML Vial 6 Units SQ HS Levemir Inj (Insulin Detemir) 1,000 unit/ 10 ML Vial 10 Units SQ DAILY Review of Systems General / Constitutional: No: Fever Eyes: No: Visual changes HENT: No: Headaches Cardiovascular: No: Chest Pain or Discomfort Respiratory: No: Shortness of Breath Gastrointestinal: No: Abdominal Pain Genitourinary: No: Dysuria Musculoskeletal: Positive: Pain (left thigh pain) Skin: No Rash Neurologic: No: Weakness Psychiatric: No: Depression Endocrine: No: Polydipsia Hematologic/Lymphatic: No: Easy Bruising Physical Exam Narrative GENERAL: AAO x 3, no acute distress, Well-nourished, well-developed patient. SKIN: Warm and dry. No visible rashes or bruising. Temperature equal in both lower extremities. Pulses are intact. HEAD: Normocephalic and atraumatic. EYES: No scleral icterus. No injection or drainage. EOM intact, PERRLA ENT: No nasal drainage noted. Mucous membranes pink. Airway patent. NECK: Supple, trachea midline. No JVD. CARDIOVASCULAR: Regular rate and rhythm without murmurs, gallops, or rubs. RESPIRATORY: Breath sounds equal bilaterally. No accessory muscle use. No rhonchi or rales. GASTROINTESTINAL: Abdomen soft, non-tender, nondistended. EXTREMITIES: No cyanosis or edema. The vastus medialis on the left appears to be contracted. Range of motion is normal in the knee and hip. Calf muscles are normal b/l. No size difference between thighs. No pain along deep vein system. BACK: Nontender without obvious deformity. No CVA tenderness. PSYCH: AAO x 3, normal affect. Data Data Last Documented VS Vital Signs Date Time Temp Pulse Resp B/P Pulse Ox O2 Delivery O2 Flow Rate FiO2 03/12/17 18:16 98.7 101 15 143/91 95 MDM Medical Decision Making Medical Screen Exam Complete: Yes Emergency Medical Condition: Yes Medical Record Reviewed: Yes Differential Diagnosis pulled muscle, less likely sprain, less likely fracture, less likely DVT Narrative Course 46 yr old male with newly dx diabetes here with c/o left thigh swelling. He says it started yesterday evening after he did some stretching. He reports some tightness in the area and pain with walking due to the tightness. He denies any recent injury. He has no other complaints. Patient seen and examined. He appears to have a pulled muscle in his left thigh. I recommend a course of muscle relaxers and anti-inflammatories. Advised him if any swelling or worsening of his condition develops, return to the emergency department. Patient verbalized understanding of instructions, questions were answered, and thanked me for their care. I advised them if their condition worsens, please return to the nearest emergency room for further care. Diagnosis Primary Impression: Pulled muscle Patient Instructions: General Instructions, Muscle Strain (ED) Additional Instructions: Rest the affected area as much as possible. Ice this area for 15-20 minutes at a time. You can do this every hour or as much as tolerated. Use ibuprofen as needed for pain and inflammation. Please return to emergency department if your symptoms return or worsen. Follow up with your primary care provider. Take medications as prescribed. Muscle relaxers can cause drowsiness. Do not drive, swim or operate heavy machinery while using these medications. Med/Other Pt SpecificInfo: Prescription(s) given Scripts Ibuprofen 800 Mg [id number] Mg PO TID #21 TAB Prov:Edmond Lindsay MD 03/12/17 Cyclobenzaprine (Flexeril)5 Mg Tab5 Mg PO TID #21 TAB Prov:Edmond Lindsay MD 03/12/17 Disposition: 01 DISCHARGE HOME Condition: Stable Ciarra Liriano Mar 12, 2017 18:33
[2017-03-12] MEDS ORDERED: IBUP800T23 PO (18:41)
[2017-03-12] MEDS ORDERED: CYCL5TAB PO (18:41)
== END 2017-03-12 19:02 | disposition home or self-care (01) ==
LOC: NEPK 18:14
DX: S76.912A Strain of unspecified muscles, fascia and tendons at thigh level, left thigh, initial encounter (principal); X50.9XXA Other and unspecified overexertion or strenuous movements or postures, initial encounter; Y93.B9 Activity, other involving muscle strengthening exercises
CPT/HCPCS: 99283